=== PATIENT | male | born 1995 | race Caucasian/White ===

== ENCOUNTER 2023-06-10 22:55 | Emergency (ER) | payer BC ==
[~2023-06-10] VITALS: Ht 177.8 cm; Wt 109.1 kg
[2023-06-10 23:09] VITALS: BP 146/90; PULSE 71; RESP 16; TEMP 99.6; O2SAT 96
[2023-06-10] MEDS ORDERED: TETRAcaine 0.5% ophthalmic drops 15ml EACHEYE ONE (23:45)
[2023-06-10] MEDS ORDERED: TETRACAINE 0.5% 4 ML OPHTHALMIC DROPS EACHEYE ONE (23:50)
[2023-06-11] MEDS ORDERED: POLOS LEFTEYE (00:11)
== END 2023-06-11 00:16 | disposition home or self-care (01) ==
LOC: ER 22:56
DX: H57.12 Ocular pain, left eye (principal); Z88.0 Allergy status to penicillin; Z79.899 Other long term (current) drug therapy
CPT/HCPCS: 99283

== ENCOUNTER 2023-09-07 23:33 | Emergency (ER) | payer BC, MEDICAID ==
[~2023-09-07] VITALS: Ht 180.3 cm; Wt 118.2 kg
[2023-09-07 23:52] VITALS: TEMP 98.5
[2023-09-08 01:35] LABS: BASOPHILS # (AUTO) 0.1 X10'3 (0-0.2); BASOPHILS % (AUTO) 0.7 % (0-1); EOSINOPHILS # (AUTO) 0.2 X10'3 (0-0.9); EOSINOPHILS % (AUTO) 1.9 % (0-6); HEMATOCRIT 47.9 % (42.0-52.0); HEMOGLOBIN 16.3 g/dl (14.0-17.9); LYMPHOCYTES # (AUTO) 3.5 X10'3 (1.1-4.8); LYMPHOCYTES % (AUTO) 41.7 % (21-51); MEAN CORPUSCULAR HEMOGLOBIN 28.9 PG (27.0-31.0); MEAN PLATELET VOLUME 8.2 FL (7.4-10.4); MONOCYTES # (AUTO) 0.7 X10'3 (0-0.9); MONOCYTES % (AUTO) 8.5 % (2-12); NEUTROPHILS # (AUTO) 3.9 X10'3 (1.8-7.7); NEUTROPHILS % (AUTO) 47.2 % (42-75); PLATELET COUNT 205 X10'3 (140-440); RED BLOOD COUNT 5.64 X10'6 (4.70-6.10); WHITE BLOOD COUNT 8.3 X10'3 (4.5-11.0)
[2023-09-08 01:54] LABS: ALBUMIN 4.1 G/DL (3.4-5.0); ANION GAP 6 (8-16); BLOOD UREA NITROGEN 12 MG/DL (7-18); BUN/CREATININE RATIO 13.3 (10.0-20.0); CALCIUM 9.7 MG/DL (8.5-10.1); CHLORIDE 103 MMOL/L (99-107); GLUCOSE 89 MG/DL (70-104); POTASSIUM 4.1 MMOL/L (3.5-5.1); SODIUM 141 MMOL/L (135-145); TOTAL CARBON DIOXIDE 32.3 MMOL/L (24-32); eCRCL 132 ML/MIN; eGFR > 90 ML/MIN
[2023-09-08 01:56] LABS: PRO BRAIN NATRIURETIC PEPTIDE < 30 PG/ML (0-125)
[2023-09-08 01:59] VITALS: BP 138/94; PULSE 78; RESP 14; O2SAT 97
== END 2023-09-08 02:05 | disposition home or self-care (01) ==
LOC: ER 23:33
DX: R07.89 Other chest pain (principal); Z88.1 Allergy status to other antibiotic agents; Z88.0 Allergy status to penicillin
CPT/HCPCS: 36415; 71045; 80048; 83880; 84484; 85025; 93005; 99285